=== PATIENT | male | born 1970 | race Two or more races ===

== ENCOUNTER → 2016-08-27 | Outpatient (CLI) | payer OTHER | LOC: BMCIMAGING 15:59 | PROVIDERS: ATTEND Internal Medicine | DX: R07.9 Chest pain, unspecified (principal); R06.02 Shortness of breath ==

== ENCOUNTER 2018-06-03 17:01 | Emergency (ER) | payer OTHER ==
--- NOTE | 2018-06-03 17:24 | CPEKG ---
Test Reason : OPEN Blood Pressure : / mmHG Vent. Rate : 056 BPM Atrial Rate : 056 BPM P-R Int : 187 ms QRS Dur : 105 ms QT Int : 422 ms P-R-T Axes : 031 036 013 degrees QTc Int : 408 ms Sinus rhythm Confirmed by Calvin Ruiz ([id number]) on 06/03/2018 5:23:44 PM Referred By: Confirmed By:Calvin Ruiz
[2018-06-03] MEDS ORDERED: LIDOCAINE 2% VISCOUS 15 ML UDCUP PO ONE (17:29)
[2018-06-03] MEDS ORDERED: ASPIRIN 81 MG CHEWABLE TAB PO ONE (17:29)
[2018-06-03] MEDS ORDERED: HYOSCYAMINE SULFATE 0.125 MG TAB PO ONE (17:29)
[2018-06-03] MEDS ORDERED: MAG HYDROX/AL HYDROX/SIMETH 30 ML UDCUP PO ONE (17:29)
--- NOTE | 2018-06-03 17:29 | EDPHY ---
General - History Smoking Status: Never smoked Time Seen by Provider: 06/03/18 17:19 Narrative: CHIEF COMPLAINT: Chest pain HISTORY OF PRESENT ILLNESS: Patient presents by private vehicle with complaints of left-sided chest pain. Chest pain started abruptly at 4:00 p.m. Today. He was driving his vehicle to his children school when this happened. It is left-sided only. Does not radiate. Described as a 10/10 at that time. It has been constant duration. Currently 5/10 without intervention. No nausea or vomiting. No shortness of breath. No fever, cough. No recent travel, trauma or surgery. No hemoptysis. No previous coronary artery disease, hypertension, diabetes or dyslipidemia. No previous history of venous thrombolic event. He says that he has had similar pain like this in the past 4 months, but it has lasted for several seconds and then gone away. He associates today's pain with feeling anxious as well. as well. No other associated complaints or modifying factors. REVIEW OF SYSTEMS: 10 systems were reviewed and negative with the exception of the elements mentioned in the history of present illness. PCP: Dr. Goldsmith SPECIALISTS: Cardiology PAST MEDICAL HISTORY: Does not know. PAST SURGICAL HISTORY: Denies SOCIAL HISTORY: Nonsmoker. Quit drinking 2 months ago, prior to this was having 3-4 beers per day. Denies drug use. Works as a cook in the kitchen at [employer] FAMILY HISTORY: Noncontributory. Denies any known coronary artery disease in first-degree relatives. EXAMINATION: Vitals: Triage VS reviewed General Appearance: Alert, no distress Head: normocephalic, atraumatic Eyes: Pupils equal and round, no conjunctival pallor or injection ENT, Mouth: Mucous membranes moist Neck: Normal inspection, supple, non-tender Respiratory: Lungs are clear to auscultation Cardiovascular: Regular rate and rhythm. No murmur. Good signs of perfusion distally. Gastrointestinal: Abdomen is soft and nontender Back: non-tender, no bony abnormalities Neurological: A&O, nonfocal, normal gait Skin: Warm and dry, no rash Extremities: Nontender, no pedal edema Psychiatric: Mood and affect normal DIFFERENTIAL DIAGNOSES: Including but not limited to ACS, PE, esophagitis, GERD, anxiety, pleurisy, pericarditis, dissection, aneurysm MDM: 5:20 p.m. Left-sided chest pain that started at 4:00 p.m. Today while driving. This is a non reducible pain. Nonexertional. Denies any family history. He reports similar pain to this over the past 4 months that has gone away quickly. He reports a stress test last year that was reportedly normal. He has not had any aspirin today. No previous VTE or risk factors at this time for such. He is well-appearing with normal vital signs. EKG obtained with normal sinus rhythm without ischemia. No previous available for comparison. He will be placed on a equipment monitor phototypesetting. I have ordered chest x-ray, laboratory studies, aspirin and GI cocktail. Re-evaluate shortly. Heart score: 1 6:05 p.m. Laboratory studies including troponin are all within normal limits. Chest x- ray pending. 6:20 p.m. Patient re-evaluated. Currently pain-free at this time. Chest x-ray is currently being taken. We discussed the shared decision pathway and he has elected for repeat troponin. He is pain-free at this time and in no acute distress. 7:40 p.m. Repeat, 2 hr troponin is also negative at 0.0. Patient re-evaluated. He continues to be pain-free. We discuss discharge home versus admission for observation and further workup. We discussed risks, benefits alternatives, and He would like to go home. I do feel this is reasonable and I feel that cardiac etiologies highly unlikely in this patient. He is very low risk and I suspect that reflux may be a component of his pain. He will contact his primary care physician and Cardiology as instructed. We discussed strict ED precautions for any return of pain. We discussed antacid medications as documented. He is happy with this plan and would like to go home. Discharged stable condition. SUPERVISION: Patient was independently examined, but I discussed the case with my secondary supervising physician Dr. Ruiz CONSULTATION: None (Shawn Christian) Medical Decision Making: PHYSICIAN DOCUMENTATION: The patient was evaluated and managed by the Physician Atmospheric Physics Professor and myself. I have reviewed the chart and agree with the findings and plan of care as documented. In addition, I examined the patient myself at 1830. History confirmed as nontraumatic chest discomfort but epigastric radiating into his chest. He describes it to me happening today as described, but also happened when he had yogurt and fruit several days ago. Symptoms gone at this time. Physical findings as follows: Regular rate rhythm without murmur. 12-lead EKG interpreted by me; official reading is in computer system. My interpretation is sinus rhythm rate 56 with no ischemic changes. Low risk for ACS or PE. More likely gastrointestinal I am the secondary supervising physician. (Calvin Ruiz) - Diagnostics Imaging Results: Imaging Impressions Chest X-Ray 06/03/18 17:29 Impression: No acute findings in the chest. - Objective Vital Signs: Initial Vital Signs Temperature (C) 97.7 F 06/03/18 17:07 Heart Rate 64 06/03/18 17:07 Respiratory Rate 16 06/03/18 17:07 Blood Pressure 141/87 H 06/03/18 17:07 O2 Sat (%) 96 06/03/18 17:07 O2 Delivery Mode Room Air Allergies/Adverse Reactions: No Known Allergies Allergy (Unverified 09/27/09 16:24) Home Medications: Medication Instructions Recorded NO HOME MEDS 09/27/09 Laboratory Results: Laboratory Results 06/03/18 17:25 06/03/18 17:25 06/03/18 06/03/18 06/03/18 19:24 17:28 17:25 WBC RBC Hgb Hct MCV MCH MCHC RDW Plt Count MPV Neut % (Auto) Lymph % (Auto) [place] % (Auto) Eos % (Auto) Baso % (Auto) Nucleat RBC Rel Count Absolute Neuts (auto) Absolute Lymphs (auto) Absolute Monos (auto) Absolute Eos (auto) Absolute Basos (auto) Absolute Nucleated RBC Immature Gran % Immature Gran # Sodium 140 mEq/L mEq/L (135-145) Potassium 3.9 mEq/L mEq/L (3.3-5.0) Chloride 104 mEq/L mEq/L (97-110) Carbon Dioxide 27 mEq/l mEq/l (22-31) Anion Gap 9 mEq/L mEq/L (6-14) BUN 23 mg/dL mg/dL (7-23) Creatinine 0.7 mg/dL mg/dL (0.7-1.3) Estimated GFR > 60 Glucose 96 mg/dL mg/dL (70-100) Calcium 9.8 mg/dL mg/dL (8.5-10.4) POC Troponin I 0.00 ng/mL ng/mL 0.00 ng/mL ng/mL (0.00-0.08) (0.00-0.08) Lipase 109 IU/L IU/L (23-300) 06/03/18 17:25 WBC 7.42 10^3/uL 10^3/uL (3.80-9.50) RBC 5.20 10^6/uL 10^6/uL (4.40-6.38) Hgb 15.1 g/dL g/dL (13.7-17.5) Hct 44.4 % % (40.0-51.0) MCV 85.4 fL fL (81.5-99.8) MCH 29.0 pg pg (27.9-34.1) MCHC 34.0 g/dL g/dL (32.4-36.7) RDW 13.3 % % (11.5-15.2) Plt Count 260 10^3/uL 10^3/uL (150-400) MPV 10.2 fL fL (8.7-11.7) Neut % (Auto) 58.6 % % (39.3-74.2) Lymph % (Auto) 30.3 % % (15.0-45.0) [place] % (Auto) 8.4 % % (4.5-13.0) Eos % (Auto) 1.9 % % (0.6-7.6) Baso % (Auto) 0.5 % % (0.3-1.7) Nucleat RBC Rel Count 0.0 % % (0.0-0.2) Absolute Neuts (auto) 4.35 10^3/uL 10^3/uL (1.70-6.50) Absolute Lymphs (auto) 2.25 10^3/uL 10^3/uL (1.00-3.00) Absolute Monos (auto) 0.62 10^3/uL 10^3/uL (0.30-0.80) Absolute Eos (auto) 0.14 10^3/uL 10^3/uL (0.03-0.40) Absolute Basos (auto) 0.04 10^3/uL 10^3/uL (0.02-0.10) Absolute Nucleated RBC 0.00 10^3/uL 10^3/uL (0-0.01) Immature Gran % 0.3 % % (0.0-1.1) Immature Gran # 0.02 10^3/uL 10^3/uL (0.00-0.10) Sodium Potassium Chloride Carbon Dioxide Anion Gap BUN Creatinine Estimated GFR Glucose Calcium POC Troponin I Lipase Medications Given: Discontinued Medications Al Hydroxide/Mg Hydroxide (Maalox Susp) 30 ml PO ONCE ONE Stop: 06/03/18 17:30 Last Admin: 06/03/18 17:38 Dose: 30 ml Aspirin (Aspirin) 324 mg PO EDNOW ONE Stop: 06/03/18 17:30 Last Admin: 06/03/18 17:37 Dose: 324 mg Hyoscyamine Sulfate (Levsin, Hyomax-Sl) 0.25 mg PO ONCE ONE Stop: 06/03/18 17:30 Last Admin: 06/03/18 17:37 Dose: 0.25 mg Lidocaine (Lidocaine 2% Viscous) 15 ml PO ONCE ONE Stop: 06/03/18 17:30 Last Admin: 06/03/18 17:38 Dose: 15 ml Morphine Sulfate (Morphine) 4 mg IVP EDNOW ONE Stop: 06/03/18 17:30 Last Admin: 06/03/18 17:38 Dose: 4 mg Point of Care Test Results: Chemistry 06/03/18 06/03/18 19:24 17:28 POC Troponin I 0.00 ng/mL ng/mL 0.00 ng/mL ng/mL (0.00-0.08) (0.00-0.08) Departure - Departure Clinical Impression: Chest pain Qualifiers: Chest pain type: unspecified Qualified Code(s): R07.9 - Chest pain, unspecified Condition: Good Instructions: Chest Pain (ED), Gastroesophageal Reflux Disease (ED) Additional Instructions: 1. [id number] Pepcid 20 mg twice daily as needed 2. [id number] Maalox as directed on the bottle as needed 3. Contact her primary care physician tomorrow morning to be seen in the next 48 hr 4. Contact the on-call toll transmission worker as provided for outpatient care 5. Return to emergency department for any return of her chest pain Referrals: Kane Goldsmith MD [Primary Care Provider] - As per Instructions Parag Mar MD [Medical Doctor] - As per Instructions
[2018-06-03 17:41] LABS: PLATELET COUNT 260 10^3/uL (150-400)
[2018-06-03 20:31] VITALS: BP 119/76
== END 2018-06-03 20:30 | disposition home or self-care (01) ==
DX: R07.9 Chest pain, unspecified (principal)
CPT/HCPCS: 84484-PO; 96374; J2270